=== PATIENT | female | born 1980 | race Caucasian/White ===

== ENCOUNTER 2019-03-05 15:16 | Emergency (ER) | payer OTHER, SELFPAY ==
[2019-03-05 15:24] VITALS: BP 134/90; PULSE 90; RESP 14; TEMP 36.4; O2SAT 97; BMI 36.6
[2019-03-05 16:28] VITALS: BP 138/76; PULSE 72; RESP 18; O2SAT 97
[2019-03-05 16:52] VITALS: BP 126/71; PULSE 71; O2SAT 100
[2019-03-05] MEDS: CYCLOBENZAPRINE 10 MG TABLET PO (16:53)
[2019-03-05] MEDS: KETOROLAC 60 MG/2 ML VIAL IM (16:53)
[2019-03-05 17:02] LABS: Bacteria Urine None Seen
[2019-03-05 17:05] LABS: Culture Indicated Urine Cult Not Indicated; RBC Urine 0-1/HPF (0-5/HPF); Squamous Epithelial Cell Urine 0-1 /HPF (0-5/HPF); WBC Urine 1-5/HPF (0-5/HPF)
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
[2019-03-05 17:33] VITALS: BP 134/82; PULSE 76; RESP 18; TEMP 36.7; O2SAT 100
== END 2019-03-05 17:33 | disposition home or self-care (01) ==
PROVIDERS: Emergency Provider Nurse Practitioner Family
DX: M62.830 Muscle spasm of back (principal); S13.4XXA Sprain of ligaments of cervical spine, initial encounter; V43.52XA Car driver injured in collision with other type car in traffic accident, initial encounter
CPT/HCPCS: 81003; 81015; 81025; 96372; 99283; J1885